=== PATIENT | female | born 1950 | race Caucasian/White ===

== ENCOUNTER → 2018-01-14 10:40 | Outpatient (CLI) | payer MEDICARE, SELFPAY ==
[2018-01-14 12:03] LABS: AST(SGOT) 24 U/L (15-37); Alanine Aminotransfer ALT/SGPT 22 U/L (13-56); Albumin, Serum 3.6 g/dL (3.2-5.0); Alkaline Phosphatase 70 U/L (45-117); Bilirubin, Direct 0.07 mg/dL (0.00-0.30); Cholesterol 86 mg/dL (200); Globulin 4.2 g/dL (2.2-4.2); High Density Lipoprotein 40 mg/dL; Protein, Total 7.8 g/dL (6.4-8.2); Triglycerides 145 mg/dL; Very Low Density Lipoprotein 29 mg/dL (5-40)
== END ==
PROVIDERS: Family Provider Family Medicine; PCP Family Medicine; Visit Provider Internal Medicine Cardiovascular Disease
DX: E11.51 Type 2 diabetes mellitus with diabetic peripheral angiopathy without gangrene (principal); E78.5 Hyperlipidemia, unspecified; Z95.5 Presence of coronary angioplasty implant and graft
CPT/HCPCS: 36415; 80061; 80076

== ENCOUNTER → 2018-01-17 08:54 | Outpatient (CLI) | payer MEDICARE, SELFPAY ==
--- NOTE | 2018-01-17 09:00 | ECHOD_ITS ---
Reason For Study: DYSPNEA Procedure This was a 2D Doppler, Color Flow transthoracic echocardiogram. Contrast injection was performed. Exam performed in department. Left Ventricle Normal size and thickness. The estimated ejection fraction is 65 %. Stage 1 diastolic dysfunction. No regional wall motion abnormalities noted. Right Ventricle Normal size and thickness. Normal systolic function. Atria Normal left atrium. Normal right atrium. Normal atrial septum. Mitral Valve The mitral valve is structurally normal. No prolapse or stenosis seen. Mild mitral annular calcification extending into the posterior leaflet. Tricuspid Valve Normal tricuspid valve. Unable to estimate RV systolic pressure due to inadequate jet, pulmonary artery pressure probably normal. Aortic Valve Trisinus/trileaflet aortic valve. Normal aortic valve. Pulmonic Valve Normal pulmonic valve. Great Vessels Normal aortic root. Normal arch. Normal inferior vena cava. Inferior vena cava collapse with sniff. Pericardium/Pleural No pericardial effusion. Medication 22 gauge I.V. with prn adaptor inserted into right arm. Diluted definity 3ml given slow IV push to enhance endocardial definition. MMode/2D Measurements & Calculations LVIDd: 4.5 cm IVSd: 1.2 cm Ao root diam: 3.8 cm LVIDs: 2.9 cm LVPWd: 1.0 cm LA dimension: 3.1 cm RVDd: 3.1 cm FS: 35.8 % LAV(MOD-bp): 41.7 ml EDV(MOD-sp4): 108.3 ml EDV(MOD-sp2): 101.1 ml LAV(MOD-bp) Indexed: 20.1 ml/m2 ESV(MOD-sp4): 43.3 ml EF(MOD-sp2): 59.8 % LAV(MOD-sp2): 29.4 ml EF(MOD-sp4): 60.1 % LAV(MOD-sp4): 49.9 ml SV(MOD-sp4): 65.1 ml SV(MOD-sp2): 60.4 ml LA A4 area: 19.3 cm2 RA A4 area: 15.0 cm2 Doppler Measurements & Calculations MV E max nahum: 92.7 cm/sec Lat Peak E' Nahum: 7.2 cm/sec Med Peak E' Nahum: 5.7 cm/sec MV A max nahum: 109.8 cm/sec E/E' lat: 12.8 E/E' med: 16.1 MV E/A: 0.84 Ao V2 max: 113.3 cm/sec LV V1 max: 94.0 cm/sec Ao max P.2 mmHg LV V1 max P.6 mmHg Interpretation Summary The estimated ejection fraction is 65 %. Stage 1 diastolic dysfunction. Unable to estimate RV systolic pressure due to inadequate jet, pulmonary artery pressure probably normal. Compared to echo report dated 09/28/2011, no appreciable changes noted. The study was technically difficult. Contrast injection was performed. Ordering Physician: Kendell Ramírez Referring Physician: Kendell Ramírez
== END ==
PROVIDERS: Family Provider Family Medicine; PCP Family Medicine; Visit Provider Internal Medicine Cardiovascular Disease
DX: I25.10 Atherosclerotic heart disease of native coronary artery without angina pectoris (principal)
CPT/HCPCS: 93306; Q9957; A4216; C8929

== ENCOUNTER → 2018-04-13 20:00 | Outpatient (CLI) | payer MEDICARE, SELFPAY | PROVIDERS: Family Provider Family Medicine; PCP Family Medicine; Visit Provider Internal Medicine Critical Care Medicine | DX: G47.33 Obstructive sleep apnea (adult) (pediatric) (principal) | CPT/HCPCS: 95811 ==

== ENCOUNTER → 2018-05-16 08:58 | Outpatient (CLI) | payer MEDICARE, SELFPAY ==
[2018-05-16 09:33] VITALS: PULSE 60; PULSE 63; PULSE 74; PULSE 84; PULSE 88; PULSE 89; PULSE 90; O2SAT 91; O2SAT 92; O2SAT 93; O2SAT 95; O2SAT 96
--- NOTE | 2018-05-16 10:51 | WT_ITS ---
PSN 6 Minute Walk Test - 6 Minute Walk Test 6 Minute Walk Test: 6 Minute Walk Test PSN:6-Minute Walk Test Start: 05/16/18 09: 32 Freq: Status: Active Protocol: RESP.6MINW Document 05/16/18 09:33 NIK (Rec: 05/16/18 09:36 NIK [id number]) 6 Minute Walk Test Date Performed 05/16/18 Time Performed 09:10 Height 5 ft 3 in Weight: 108.862 kg Weight in Pounds 240.[address]: Ascencion Gil Assistive device used: None Pre-test Oxygen Delivery Method Room Air Pulse Ox (%) 95 Pulse Rate (60-100 beats/min) 60 Dyspnea Maria T Scale (0-10) 0 Exertion Maria T Scale (6-20) 6 1st minute Oxygen Delivery Method Room Air Pulse Ox (%) 93 Pulse Rate (60-100 beats/min) 74 2nd minute Oxygen Delivery Method Room Air Pulse Ox (%) 92 Pulse Rate (60-100 beats/min) 84 3rd minute Oxygen Delivery Method Room Air Pulse Ox (%) 91 Pulse Rate (60-100 beats/min) 88 4th minute Oxygen Delivery Method Room Air Pulse Ox (%) 91 Pulse Rate (60-100 beats/min) 89 5th minute Oxygen Delivery Method Room Air Pulse Ox (%) 93 Pulse Rate (60-100 beats/min) 89 6th minute Oxygen Delivery Method Room Air Pulse Ox (%) 93 Pulse Rate (60-100 beats/min) 90 Dyspnea Maria T Scale (0-10) 2 Exertion Maria T Scale (6-20) 13 Post-test Oxygen Delivery Method Room Air Pulse Ox (%) 96 Pulse Rate (60-100 beats/min) 63 Full Laps Walked 16 Partial Lap, Number of Tiles Walked 24 Total Distance Walked (ft) 968 - Interpretation Interpretation: The patient was able to ambulate 968 feet over the course of 6 minutes on room air with no assistive devices or breaks. The patient did experience significant desaturation from a baseline of 95%, to his low as 91% with ambulation. No significant tachycardia was noted. These findings are consistent with a respiratory limitation exercise tolerance. - Recommendations Recommendations: No supplemental oxygen is indicated at this time. However, patient will need to be followed closely given level of desaturation.
== END ==
PROVIDERS: Family Provider Family Medicine; PCP Family Medicine; Visit Provider Internal Medicine Critical Care Medicine
DX: I27.20 Pulmonary hypertension, unspecified (principal)
CPT/HCPCS: 94618

== ENCOUNTER 2021-09-25 10:10 | Outpatient (CLI) | payer MEDICARE, SELFPAY ==
--- NOTE | 2021-09-26 10:08 | PFT ---
INTRODUCTION: The patient is a 71-year-old female that presents for pulmonary function studies secondary to a diagnosis of abnormal lung findings. Respiratory therapy reported good patient effort. Bronchodilators were used during testing. INTERPRETATION: Forced expiration spirometry demonstrates the presence of a mild large airways obstructive ventilatory defect. There was no significant response to aerosolized bronchodilators. Spirograms are of good quality and plateau normally. Body plethysmography was performed and revealed an elevated RV to 150% of predicted, indicative of underlying air trapping. Diffusing capacity by single breath CO is reduced to 67% of predicted. IMPRESSION: Irreversible mild large airways obstructive ventilatory defect with associated air trapping and symmetric reduction in diffusing capacity.
== END 2021-09-25 23:59 | disposition short-term general hospital (02) ==
LOC: PSN 10:11
PROVIDERS: PCP Internal Medicine; Referring Provider Internal Medicine Critical Care Medicine; Visit Provider Internal Medicine Critical Care Medicine
DX: R91.8 Other nonspecific abnormal finding of lung field (principal)
CPT/HCPCS: 94060; 94726; 94729

== ENCOUNTER 2021-09-30 12:09 | Outpatient (CLI) | payer MEDICARE, SELFPAY ==
[2021-09-30 12:28] VITALS: PULSE 102; PULSE 103; PULSE 105; PULSE 71; PULSE 87; PULSE 91; PULSE 96; O2SAT 93; O2SAT 94; O2SAT 96
--- NOTE | 2021-09-30 14:11 | PCM.PSN.6M ---
PSN 6 Minute Walk Test 6 Minute Walk Test 6 Minute Walk Test: 6 Minute Walk Test PSN:6-Minute Walk Test Start: 09/30/21 12:28 Freq: Status: Active Protocol: RESP.6MINW Document 09/30/21 12:28 GABE (Rec: 09/30/21 12:32 [id number]) 6 Minute Walk Test Date Performed 09/30/21 Time Performed 12:30 Height 5 ft 3 in Weight: 106.594 kg Weight in Pounds 235.[address]: Octaviano Helton FIO2 (% Oxygen) 21 Assistive device used: None Pre-test Oxygen Delivery Method Room Air Pulse Ox (%) 96 Pulse Rate (60-100 beats/min) 71 Dyspnea Maria T Scale (0-10) 0 Exertion Maria T Scale (6-20) 6 1st minute Oxygen Delivery Method Room Air Pulse Ox (%) 94 Pulse Rate (60-100 beats/min) 87 2nd minute Oxygen Delivery Method Room Air Pulse Ox (%) 94 Pulse Rate (60-100 beats/min) 96 3rd minute Oxygen Delivery Method Room Air Pulse Ox (%) 93 Pulse Rate (60-100 beats/min) 103 H 4th minute Oxygen Delivery Method Room Air Pulse Ox (%) 94 Pulse Rate (60-100 beats/min) 102 H 5th minute Oxygen Delivery Method Room Air Pulse Ox (%) 93 Pulse Rate (60-100 beats/min) 103 H 6th minute Oxygen Delivery Method Room Air Pulse Ox (%) 93 Pulse Rate (60-100 beats/min) 105 H Post-test Oxygen Delivery Method Room Air Pulse Ox (%) 93 Pulse Rate (60-100 beats/min) 91 Dyspnea Maria T Scale (0-10) 4 Exertion Maria T Scale (6-20) 20 Full Laps Walked 13 Partial Lap, Number of Tiles Walked 30 Total Distance Walked (ft) 797 Interpretation Interpretation: The patient was noted to be 96% on room air at rest. The patient then ambulated 797 feet over the course of 6 minutes on room air with no assistive devices or breaks. The patient did have a significant increase in heart rate to a peak of 105 bpm. These findings are consistent with a cardiovascular limitation exercise tolerance. Recommendations Recommendations: No supplemental oxygen is indicated at this time.
== END 2021-09-30 23:59 | disposition short-term general hospital (02) ==
LOC: PSN 12:09
PROVIDERS: PCP Internal Medicine; Referring Provider Internal Medicine Critical Care Medicine; Visit Provider Internal Medicine Critical Care Medicine
DX: R91.8 Other nonspecific abnormal finding of lung field (principal)
CPT/HCPCS: 94618

== ENCOUNTER 2021-10-14 17:07 | Outpatient (CLI) | payer MEDICARE, SELFPAY ==
--- NOTE | 2021-10-14 17:08 | CT_ITS ---
STUDY: CT CHEST WITHOUT CONTRAST REASON FOR EXAM: Female, 71 years old. New lung nodule RADIATION DOSAGE (If Supplied By Facility): CTDIvol = ( 19.78 ) mGy, DLP = ( 771.16 ) mGycm TECHNIQUE: Transaxial imaging was performed without the administration of intravenous contrast material. Multiplanar coronal and sagittal images were reformatted. Individualized dose optimization techniques were used for this CT. COMPARISON: Comparison is made with prior examination dated 07/12/2017. FINDINGS: There is a new 1.7 cm x 2.2 cm noncalcified nodule in the superior segment of the left lower lobe laterally. A biopsy is recommended. There is no demonstrated pleural abnormality. There are calcifications of the coronary arteries. There are multiple small lymph nodes within the mediastinum, which are normal in size and morphology most compatible with reactive lymph hyperplasia. Normal hilar regions. Normal unenhanced pulmonary arteries. There is atherosclerotic calcification of the aortic arch with tortuosity and elongation of the aortic arch and descending thoracic aorta. There are multi-level degenerative changes of the thoracic spine. There is evidence of a healed fracture of the left second or third rib medially with a dense callus formation. The patient is status post cholecystectomy. CT/Chest without Contrast IMPRESSION: There is a new 1.7 cm x 2.2 cm noncalcified nodule in the superior segment of the left lower lobe laterally. Correlation with the PET scan and/or biopsy recommended. Electronically Signed: Edgar Jamison MD at 12:13 EST ,
== END 2021-10-14 23:59 | disposition home or self-care (01) ==
LOC: CT 17:08
PROVIDERS: PCP Internal Medicine; Visit Provider Internal Medicine Critical Care Medicine
DX: R91.8 Other nonspecific abnormal finding of lung field (principal)
CPT/HCPCS: 71250

== ENCOUNTER 2021-10-28 11:18 | Outpatient (CLI) | payer MEDICARE, SELFPAY ==
[2021-10-28 12:01] LABS: Platelet Count 222 K/mm3 (150-450)
[2021-10-28 12:14] LABS: International Normalized Ratio 1.1; Partial Thromboplast Time 27.1 Seconds (24.1-36.2); Prothrombin Time (Protime)PT. 13.1 SECONDS (11.7-14.9)
== END 2021-10-28 23:59 | disposition home or self-care (01) ==
LOC: LAB 11:23
PROVIDERS: PCP Internal Medicine; Referring Provider Nurse Practitioner Acute Care; Visit Provider Nurse Practitioner Acute Care
DX: E11.65 Type 2 diabetes mellitus with hyperglycemia (principal); Z79.4 Long term (current) use of insulin; E78.5 Hyperlipidemia, unspecified
CPT/HCPCS: 36415; 85049; 85610; 85730

== ENCOUNTER 2021-11-07 07:39 | Outpatient (CLI) | payer MEDICARE, SELFPAY ==
[2021-11-07] VITALS (13 sets, daily range): BP systolic 125–153; BP diastolic 36–96; PULSE 65–77; RESP 13–66; TEMP 36.4; O2SAT 90–98; BMI 40.7
--- NOTE | 2021-11-07 07:47 | CT_ITS ---
PROCEDURE: CT GUIDED CORE NEEDLE BIOPSY OF A left lower globe LUNG LESION INDICATION: Female, 71 years old. New 1.7X2.2cm LLL mass -- on ASA PHYSICIAN: Dr. LINDA Porter CONSENT: Written informed consent was obtained having explained the risks, benefits and alternatives in detail with the patient who accepted the risks and agreed to proceed. Laboratory review and clinical assessment was performed. CONSCIOUS SEDATION PROTOCOL: The Drugs used were: 2 mg Versed, IV., and 50 mcg Fentanyl, IV. The sedation time was: 18 minutes. Conscious sedation was started at 8:52 AM and terminated at 9:10 AM The conscious sedation protocol was independently monitored. RADIATION DOSAGE (If Supplied By Facility): CTDIvol = ( 20.5 ) mGy, DLP = ( 621.7 ) mGycm Individualized dose optimization techniques were used for this CT. TECHNIQUE: The patient was placed in the prone position. A noncontrast CT was performed to localize the lesion in the left lower lobe . The skin surface was prepped and draped in a sterile fashion. 1% lidocaine was used for local anesthesia. Using CT guidance, a 20-gauge coaxial biopsy device was advanced to the periphery of the lesion. A total of 5 core specimens were obtained. The specimens were placed in a formalin solution. A post procedure CT demonstrated no adverse sequelae or pneumothorax. The patient tolerated the procedure well without adverse event. A negative biopsy does not exclude malignancy. Further imaging or clinical followup based on patient condition and degree of clinical suspicion for malignancy. Suggest rebiopsy, if biopsy results do not match with clinical scenario. CT/Biopsy/Inj or Needle Placement IMPRESSION: 1. CT directed core needle biopsy of the left lower lobe lung nodule using CT image guidance with image documentation as described. Pathology results are pending. 2. Conscious Sedation protocol utilized with independent monitoring. Electronically Signed: Edgar Jamison MD at 9:52 EST ,
[2021-11-07] MEDS: Midazolam 2 MG/2 ML Syringe IV (08:52)
[2021-11-07] MEDS: fentaNYL 100 MCG/2 ML Ampul IV (08:54)
[2021-11-07] MEDS: Lidocaine 2% (20 ml mdv) 20 ML Vial INFILT (08:55)
--- NOTE | 2021-11-07 09:00 | IMM_PTH ---
PATIENT: SLICK FERNANDEZ LOC: CT U#:[id number] AGE/SX: 71/F ROOM: RE11/07/[address]: JUAN Ibrahim : 1950 BED: DIS: 11/07/2021 SPEC #: [id number] RECD: 11/07/21 12:10 STATUS: ANTHONY REAndreea #: [id number] GIGI: 11/07/21 09:[address]: Jenelle Pritchett NP DEPT: IMMUNOHISTOCHEMISTRY RECD BY: Bonita Kelsey ENTERED: 11/07/21 12:13 SP TYPE: IMMUNO OTHR DR: Dr. Vesna Zambrano MD Tissues: Left lower lobe of lung, NOS Procedures: RCC (add) NAPSIN A (add) CK20 (add) CK5-6 (add) CK7 (add) CK8 (add) HEP PAR (add) NE (add) TTF1 (add) Pankeratin (add) P40 (add) ER (initial) PHYSICIAN & [address] [address] SPECIMEN INFORMATION: Tissue Source: Left lower lobe lung Clinical Info: Left lung mass Specimen Number: [id number] CPT code: 43960, 87254 x11 METHODOLOGY: Deparaffinized sections of prefer/formalin-fixed tissue or PAP/DQ stained slides are incubated with monoclonal/polyclonal antibodies/oligonucleotide probes. Localization is made via biotin free immunoperoxidase method. Appropriate controls are performed and reacted as expected. Results on target cell population are indicated in the following table: RESULTS: ANTIBODY / CLONE RESULT ER (6F11) negative NE (1E2) negative AE1-3 (AE1/AE3/PCK26) positive CK7 (OV-TL12/30) negative CK8 (92bickC90) positive CK20 (KS20.8) negative TTF-1 (8G7G3/1) negative Napsin A (Rabbit Polyclonal) negative HepPar (OCh1E5) negative RCC (PN-15) negative CK5-6 (D5 & 1684) positive P40 (BC28) positive These tests were developed and their performance characteristics determined by [facility]. They may not have been cleared or approved by the U.S. Food and Drug Administration. The FDA has determined that such clearance or approval is not necessary. The above immunohistochemical/dualISH markers are ordered and reviewed by the Pathologist. INTERPRETATION: Left lower lobe lung, CT-guided core biopsy: Poorly differentiated non-small cell carcinoma, favor squamous cell carcinoma. SJ:lyric 11/10/2021
--- NOTE | 2021-11-07 09:00 | ASPIGT_PTH ---
PATIENT: SLICK FERNANDEZ LOC: [place] U#:[id number] AGE/SX: 71/F ROOM: RE11/07/[address]: JUAN Ibrahim : 1950 BED: DIS: 11/07/2021 SPEC #: [id number] RECD: 11/07/21 09:10 STATUS: ANTHONY REAndreea #: [id number] GIGI: 11/07/21 09:[address]: Jenelle Pritchett NP DEPT: SURGICAL PATHOLOGY RECD BY: Darlene Ortiz ENTERED: 11/07/21 12:15 SP TYPE: ASP RAD OT DR: Dr. Vesna Zambrano MD Tissues: Lung, NOS Procedures: FNA Specimen Adequacy Special Stain Group II Surgery Specimen Level IV Imprint (control) HEADER OPERATION: CT-guided left lung biopsy PRE-OP DIAGNOSIS: Left lung mass TISSUE SUBMITTED: Left lower lobe lung 20-gauge biopsy x5 MICROSCOPIC DIAGNOSIS Left lower lobe lung mass, CT-guided core biopsy: Poorly differentiated non-small cell carcinoma, favor squamous cell carcinoma. See comment. PAUL:lyric 11/10/2021 COMMENT The specimen is evaluated at the time of biopsy by Dr. Krishnamurthy. Immediate Evaluation = Malignant cells present, non-small cell carcinoma. Immunohistochemistry ([id number]) supports the above diagnosis. Molecular studies on the tumor can be performed if clinically indicated. Please notify the laboratory if they are needed. This case has been reviewed in consultation with Dr. Noel who concurs with the above diagnosis. MICROSCOPIC DESCRIPTION Slides are reviewed. GROSS DESCRIPTION Received in fixative is one container labeled with the patient's name and designated left lung. The specimen consists of multiple irregular fragments of kolb soft tissue that in aggregate measure 1.5 x 0.2 x <0.1 cm. The specimen is totally submitted in one cassette. Two touch imprints are prepared at the time of core biopsy. / PAUL:lyric 11/07/2021 TC:0 [facility]: [id number], [id number] ADDENDUM ADDENDUM ADDENDUM ADDENDUM ADDENDUM ADDENDUM ADDENDUM ADDENDUM ADDENDUM ADDENDUM 12/19/2021 10:23 ADDENDUM 12/19/2021 10:23 ADDENDUM 12/19/2021 10:23 ADDENDUM 12/19/2021 10:23 ADDENDUM 12/19/2021 10:23 This addendum is added to incorporate an outside pathology consultation report. The case was examined at [facility] (#[id number]) and the following diagnosis was rendered. Left lower lobe lung mass, CT-guided core biopsy: Poorly differentiated non-small cell carcinoma, favor squamous cell carcinoma. Please see complete above mentioned consultation report in EMR
--- NOTE | 2021-11-07 09:17 | RAD_ITS ---
STUDY: X-RAY CHEST REASON FOR EXAM: Female, 71 years old. POST BIOPSY -- Immediately post lung biopsy TECHNIQUE: AP inspiration and expiration views. COMPARISON: Comparison is made with prior study dated 07/05/2017. FINDINGS: There is no evidence of pneumothorax on the immediate post left lung biopsy radiographs. RAD/Chest Insp/Exp 2 View IMPRESSION: No evidence of pneumothorax following the left lung biopsy on the immediate post left lung radiographs. Electronically Signed: Edgar Jamison MD at 9:45 EST ,
--- NOTE | 2021-11-07 11:17 | RAD_ITS ---
STUDY: X-RAY CHEST REASON FOR EXAM: Female, 71 years old. POST BIOPSY -- 2 hours post lung biopsy TECHNIQUE: 2 views, inspiratory and expiratory COMPARISON: Earlier today FINDINGS: No postprocedural pneumothorax is noted. Stable appearance of the known and biopsy of lingular mass. No superimposed infiltrate, atelectasis or effusion. Normal size heart. Normal mediastinum and power. Normal visualized pulmonary arteries. Normal visualized aortic arch and descending thoracic aorta. There are diffuse degenerative changes of the visualized thoracic spine. There is degenerative osteoarthritis of the bilateral shoulders. There is no demonstrated abnormality of the visualized soft tissue structures of the upper abdomen. RAD/Chest Insp/Exp 2 View IMPRESSION: No postprocedural pneumothorax Stable appearance of a known lingular mass Electronically Signed: Kayden Mckay MD at 16:46 EST ,
== END 2021-11-07 23:59 | disposition home or self-care (01) ==
PROVIDERS: PCP Internal Medicine; Referring Provider Nurse Practitioner Acute Care; Visit Provider Nurse Practitioner Acute Care
DX: R91.8 Other nonspecific abnormal finding of lung field (principal); E11.51 Type 2 diabetes mellitus with diabetic peripheral angiopathy without gangrene; J44.9 Chronic obstructive pulmonary disease, unspecified; E11.42 Type 2 diabetes mellitus with diabetic polyneuropathy; Z68.41 Body mass index [BMI] 40.0-44.9, adult; Z79.4 Long term (current) use of insulin; I25.10 Atherosclerotic heart disease of native coronary artery without angina pectoris; I10 Essential (primary) hypertension; E78.5 Hyperlipidemia, unspecified; E66.9 Obesity, unspecified; Z95.5 Presence of coronary angioplasty implant and graft; Z87.891 Personal history of nicotine dependence; Z79.82 Long term (current) use of aspirin; Z79.899 Other long term (current) drug therapy
CPT/HCPCS: 32408; 71046; 77012; 88172; 88305; 88313; 88341; 88342; 99156; J7040; A4216; C2613

== ENCOUNTER 2021-11-24 16:41 | Outpatient (CLI) | payer MEDICARE, SELFPAY ==
--- NOTE | 2021-11-24 16:41 | MRI_ITS ---
STUDY: MRI BRAIN WITH AND WITHOUT CONTRAST REASON FOR EXAM: Female, 71 years old. NSCLC STAGING Prior medical history: There is a new 1.7 cm x 2.2 cm noncalcified nodule in the superior segment of the left lower lobe laterally. Correlation with the PET scan and/or biopsy recommended. TECHNIQUE: Standardized multiplanar fat and water weighted pulse sequences were obtained. IV 20mL DOTAREM was administered for the contrast portion of the examination. Mild motion artifact is present on several sequences. COMPARISON: CT of the chest dated October 14, 2021 FINDINGS: There is mild cerebral atrophy with widening of the extra-axial spaces and ventricular dilatation. There are a limited number of small white matter hyperintensities, distributed throughout the deep white matter tracts of the cerebral hemispheres, consistent with mild chronic white matter ischemic changes. Normal T2* images of the brain without demonstrated susceptibility artifact. There is no demonstrated hemosiderin stain. There is no evidence for recent intracranial ischemia or other cause of cytotoxic edema on diffusion weighted imaging (DWI). No focal edema or ring lesions of the brain parenchyma. Small old lacunar infarct is seen in the mid aspect of the right temporal lobe. No enhancement or surrounding edema is seen to suggest a primary or metastatic lesion. No abnormal enhancement of the meninges or dura or skull on the current study. Normal bilateral basal ganglia. Normal thalami. There is no extra-axial fluid accumulation. Normal flow voids within the major intracranial circulation suggesting patency by spin echo criteria. Normal venous enhancement. There is no enhancing intra-axial or extra-axial abnormality. Normal sella turcica, pituitary gland, infundibular stalk, optic chiasm and hypothalamus. Normal tectal plate and pineal gland. Normal midbrain, jonnie and medulla. Normal cerebellum. Normal basal cisterns. Normal bilateral temporal bones. Normal bilateral internal auditory canals. No demonstrated orbital abnormality, within the constraints of a routine brain study. Normal visualized paranasal sinuses. Normal calvarium and skull base. Normal visualized soft tissue structures. Normal visualized upper cervical spine. MRI/Brain W/WO Contrast IMPRESSION: 1. No focal edema or ring lesions of the brain parenchyma. 2. Small old lacunar infarct is seen in the mid aspect of the right temporal lobe. No enhancement or surrounding edema is seen to suggest a primary or metastatic lesion. 3. No abnormal enhancement of the meninges or dura or skull on the current study. 4. Mild chronic ischemic and involutional changes of the brain, as described above. Electronically Signed: Richard Chang MD at 11:51 EDT ,
== END 2021-11-24 23:59 | disposition home or self-care (01) ==
LOC: MRI 16:41
PROVIDERS: PCP Internal Medicine; Visit Provider Internal Medicine Hematology & Oncology
DX: C34.32 Malignant neoplasm of lower lobe, left bronchus or lung (principal)
CPT/HCPCS: 70553; A9575

== ENCOUNTER 2021-12-08 06:49 | Outpatient (CLI) | payer MEDICARE, SELFPAY ==
--- NOTE | 2021-12-08 06:54 | ECHOCS_ITS ---
Reason For Study: Pre Op Procedure This was a 2D Doppler, Color Flow transthoracic echocardiogram. The study was technically difficult. Contrast injection was performed. Exam performed in department. Left Ventricle Normal LV size. Left ventricular systolic function is normal. The estimated ejection fraction is 60 %. Normal diastology for age. No regional wall motion abnormalities noted. Right Ventricle Normal RV size. Normal systolic function. Atria The left atrium is mildly enlarged. Normal right atrium. Mitral Valve There is mild mitral annular calcification. Tricuspid Valve Normal tricuspid valve. Mild (1+) tricuspid valve insufficiency. Pulmonary artery systolic pressure is 34 mmHg. Aortic Valve Trisinus/trileaflet aortic valve. Pulmonic Valve Normal pulmonic valve. Great Vessels Normal aortic root. The pulmonary artery is normal size. Normal inferior vena cava. Pericardium/Pleural No pericardial effusion. Medication 22 gauge I.V. with prn adaptor inserted into left arm. Diluted definity 2ml given slow IV push to enhance endocardial definition. MMode/2D Measurements & Calculations LVIDd: 4.6 cm IVSd: 1.1 cm LA dimension: 4.2 cm LVIDs: 3.1 cm LVPWd: 1.1 cm RVDd: 3.7 cm FS: 31.4 % LAV(MOD-bp): 65.4 ml LA A4 area: 21.4 cm2 RA A4 area: 17.4 cm2 LAV(MOD-bp) Indexed: 31.8 ml/m2 LAV(MOD-sp2): 57.8 ml LAV(MOD-sp4): 63.1 ml Time Measurements MV dec time: 0.29 sec Doppler Measurements & Calculations MV E max nahum: 136.4 cm/sec Lat Peak E' Nahum: 9.9 cm/sec Med Peak E' Nahum: 7.0 cm/sec MV A max nahum: 122.3 cm/sec E/E' lat: 13.8 E/E' med: 19.6 MV E/A: 1.1 MV V2 max: 141.6 cm/sec MV P1/2t max nahum: 143.5 cm/sec Ao V2 max: 117.3 cm/sec MV max P.0 mmHg MV P1/2t: 107.8 msec Ao max P.5 mmHg MV V2 mean: 96.2 cm/sec MV dec slope: 389.9 cm/sec2 MV mean P.1 mmHg MV V2 VTI: 54.8 cm MVA(P1/2t): 2.0 cm2 LV V1 max: 108.8 cm/sec PA V2 max: 97.3 cm/sec TR max nahum: 265.8 cm/sec LV V1 max P.7 mmHg TR max P.3 mmHg ECHO/Echo Complete W/ Contrast Interpretation Summary Normal LV size. Left ventricular systolic function is normal. The estimated ejection fraction is 60 %. Normal diastology for age. Pulmonary artery systolic pressure is 34 mmHg. There is mild mitral annular calcification. Ordering Physician: Debra Huizar Referring Physician: Vesna Zambrano Performed By: Naeem Flores RCS
--- NOTE | 2021-12-08 13:00 | STRESSREP ---
Stress Test Report Pharmacologic myocardial perfusion stress test. 71-year-old lady with a history of chest pain. Stress protocol: Resting EKG demonstrates normal sinus rhythm with a rate of 62 bpm normal intervals are noted. Resting blood pressure is 138/56 mmHg. 0.4 mg of regadenoson was infused per usual protocol followed by rapid intravenous saline flush injection continuous EKG monitoring was performed. The maximum heart rate attained was 88 bpm which was 59% of max impact at heart rate the maximum workload was 1 metabolic equivalent. At rest there were no ST or T wave changes noted to suggest abnormal flow reserve and at peak infusion nonspecific ST changes were noted with did not meet the criteria for ischemia. No clinical angina was noted. Myocardial perfusion protocol. 14.7 mCi of technetium 99m sestamibi was injected at rest. 0.4 mg of regadenoson was infused per usual protocol. At peak infusion 44.4 mCi of technetium 99m sestamibi was injected stress images were obtained stress and rest images were reconstructed and compared in the short axis vertical long and horizontal long axis. Gated images were also obtained. Perfusion SPECT analysis: Review of the stress images demonstrate normal uptake of tracer noted in all areas of the myocardium. The resting images similarly demonstrate normal uptake of tracer noted in all areas of the myocardium. No areas of reversibility are noted suggest ischemia and no previous infarct is noted. Gated SPECT analysis: The gated ejection fraction is 72%. Conclusion: Normal pharmacologic myocardial perfusion stress test. Preserved ejection fraction.
== END 2021-12-08 23:59 | disposition home or self-care (01) ==
PROVIDERS: PCP Internal Medicine; Visit Provider Physician Assistant Medical
DX: I25.10 Atherosclerotic heart disease of native coronary artery without angina pectoris (principal); R07.9 Chest pain, unspecified
CPT/HCPCS: 78452; 93017; 93306; A9500; Q9957; A4216; C8929; J2785

== ENCOUNTER 2021-12-08 06:50 | Outpatient (CLI) | payer MEDICARE, SELFPAY | END 2021-12-08 23:59 | disposition home or self-care (01) | LOC: CVS 06:51 | PROVIDERS: PCP Internal Medicine; Visit Provider Physician Assistant Medical | DX: R07.9 Chest pain, unspecified (principal) | CPT/HCPCS: Q9957; A4216; J2785 ==